=== PATIENT | female | born 1955 | race African-American/Black ===

== ENCOUNTER 2016-11-04 11:49 | Day surgery (SDC) | payer BC ==
[2016-10-31 12:16] LABS: BASOPHILS 0.6 %; BASOPHILS ABSOLUTE 0.03 10/3/uL (0.0-0.16); EOSINOPHILS 30.2 %; EOSINOPHILS ABSOLUTE 1.57 10/3/uL (0.0-0.53); HEMATOCRIT 27.9 % (36.0-48.0); HEMOGLOBIN 9.3 g/dL (12.0-16.0); LYMPHOCYTES 21.3 %; LYMPHOCYTES ABSOLUTE 1.11 10/3/uL (0.67-4.30); MEAN CORPUS HGB CONC 33.3 g/dL (32.0-36.0); MEAN CORPUSCULAR HEMOGLOB 31.8 pg (26.0-34.0); MEAN PLATELET VOLUME 8.9 fL (9.2-13.0); MONOCYTES 4.8 %; MONOCYTES ABSOLUTE 0.25 10/3/uL (0.21-1.20); NEUTROPHILS 43.1 %; NEUTROPHILS ABSOLUTE 2.24 10/3/uL (2.02-8.40); PLATELET COUNT 248 10/3/uL (150-400); RBC DISTRIBUTION WIDTH 16.8 % (12.0-16.0); RED CELL COUNT 2.92 10/6/uL (4.0-5.6)
[2016-10-31 12:22] LABS: MANUAL DIFF NO %; MEAN CORPUSCULAR VOLUME 95.5 fL (80-100); WHITE BLOOD CELLS 5.2 10/3/uL (4.5-10.5)
[2016-10-31 12:36] LABS: ALBUMIN 4.1 G/DL (3.5-5.0); ALKALINE PHOSPHATASE 97 U/L (45-117); BUN (BLOOD UREA NITROGEN) 7 MG/DL (6-23); CHLORIDE, SERUM 107 MMOL/L (96-112); CO2 (CARBON DIOXIDE) 24 MMOL/L (24-34); CREATININE 0.84 MG/DL (0.55-1.02); DIRECT BILIRUBIN 0.2 MG/DL (0.0-0.4); GFR AFRICAN AMERICAN 88 ML/MIN (>=60); GFR NON AFRICAN AMERICAN 76 ML/MIN (>=60); GLUCOSE, SERUM 91 MG/DL (60-99); INDIRECT BILIRUBIN(NOT ORDER) 0.7 MG/DL (0.1-0.9); POTASSIUM, SERUM 3.9 MMOL/L (3.5-5.3); SGOT(AST) 17 U/L (5-40); SGPT(ALT) 17 U/L (5-65); SODIUM, SERUM 144 MMOL/L (135-148); TOTAL BILIRUBIN 0.9 MG/DL (0-1.2); TOTAL PROTEIN 8.2 G/DL (6.0-8.5)
--- NOTE | ~2016-11-04 | OP ---
Record Of Operation [address] [place] [place]. [address] NAME: ANN CARLSON : 57 STATUS : [facility] PAT#: [id number] AGE: 61 ADM/REG DATE : 11/04/16 MR#: [id number] REPORT SERV DATE: 11/05/16 DICTATED BY: ROANN BERNAL DATE: 11/04/16 REPORT STATUS : Draft TRANSCRIBED BY: MODL DATE: 11/04/16 DATE OF PROCEDURE: 11/04/2016 PREOPERATIVE DIAGNOSES: 1. T1 N0 M0 invasive ductal carcinoma, triple negative, of the right breast 3 o'clock position 9 cm from the nipple, close to the surface of the breast and medial close to the sternum. 2. Status post neoadjuvant chemotherapy with satisfactory clinical response. POSTOPERATIVE DIAGNOSES: 1. T1 N0 M0 invasive ductal carcinoma, triple negative, of the right breast 3 o'clock position 9 cm from the nipple, close to the surface of the breast and medial close to the sternum. 2. Status post neoadjuvant chemotherapy with satisfactory clinical response. OPERATION: 1. Right breast partial mastectomy. 2. Intraoperative ultrasound. 3. Intraoperative lymphatic mapping. 4. Injection of blue dye Isosulfan blue. 5. Identification and excision of sentinel node of the right axilla. SURGEON: Ronan Bernal M.D. ANESTHESIA: General LMA. COMPLICATIONS: None. ESTIMATED BLOOD LOSS: Minimal. COUNTS: Correct. DISPOSITION: PACU. SPECIMENS: To Pathology. 1. Partial mastectomy right breast, 3 o'clock. 7 x 6 x 3 cm. The specimen discussed with pathologist Dr. Archie Gage during intraoperative consultation. a. Includes the area of the previous tumor with the biopsy clip. Additional margins, medial and inferior to secure complete resection. 2. Warbranch node blue in color. Radioactive documented right axilla for permanent section. POSITION: Supine with the arm extended prepped free. Preoperative evaluation included standard imaging, advanced imaging. No evidence of any other lesions within the same breast or the contralateral breast. No evidence of Record Of Operation [address] [place] [place]. [address] NAME: ANN CARLSON : 57 STATUS : [facility] PAT#: [id number] AGE: 61 ADM/REG DATE : 11/04/16 MR#: [id number] REPORT SERV DATE: 11/05/16 DICTATED BY: RONAN BERNAL DATE: 11/04/16 REPORT STATUS : Draft TRANSCRIBED BY: MODL DATE: 11/04/16 pathological adenopathy. Informed consent obtained. Discussed with her indications, potential, risks, complications, limitations, and alternatives to surgery. Multidisciplinary consultation prior to surgery also obtained. Preoperative lymphoscintigraphy discussed with Dr. Teddy Miller, radiologist. Shows a sentinel node with thin migration to the right axilla detected. The patient has had a prior reduction mammoplasty that may account for the slow migration of the sentinel node. We have planned originally placement of the guidewire in the office, however, this could not be accomplished. Due to the patient's logistic, she did not come to the office for the wire placement, so we opted to localize the area intraoperatively with ultrasound. We used SonoSite to remove equipment. SUMMARY: She was brought to the operating room and placed supine. The patient identified, procedure confirmed. A time-out protocol enforced, prophylactic IV antibiotics given. The right breast, right axilla, and the right arm were prepped and draped in a sterile fashion. The area of the tumor was interrogated with ultrasound. The biopsy marker clip was seen. No residual tumor. The previous imaging studies were reviewed as well. We marked the skin located 3 o'clock 9 cm from the nipple consistent with the preoperative and evaluation, and the findings at the time of the biopsy. We injected the periareolar area with Isosulfan blue, Lymphazurin, intraparenchymal. An incision was made directly over the skin at the 3 o'clock position 9 cm from the nipple in the area of the biopsy marker clip. The incision was carried down through the underlying subcutaneous tissue. Using the intraoperative ultrasound, a small probe, we monitored the resection. We developed flaps superiorly, inferiorly, medially, and laterally to encompass the area of the tumor and a wide resection of the breast parenchyma surrounding the tumor site due to the nature of this triple negative aggressive tumor. The breast parenchyma was transected with electrocautery. Hemostasis achieved by means of electrocautery and also with a suture ligature of a 3-0 Vicryl. The specimen was then from the underlying chest wall aponeurosis. The specimen was removed, oriented. The specimen radiograph was obtained. This showed the biopsy clip toward the inferior medial aspect of the specimen, which may be influenced by the positioning of the specimen at the time of removal from the partial mastectomy cavity. Throughout the dissection, we believe that the superficial marker clip is close to the Record Of Operation [facility] [address] [place]. [address] NAME: ANN CARLSON : 57 STATUS : [facility] PAT#: [id number] AGE: 61 ADM/REG DATE : 11/04/16 MR#: [id number] REPORT SERV DATE: 11/05/16 DICTATED BY: RONAN BERNAL DATE: 11/04/16 REPORT STATUS : Draft TRANSCRIBED BY: MODL DATE: 11/04/16 surface of the skin and that the margins will be wide in all directions. Intraoperative consultation was obtained with Dr. Archie Gage, pathologist. Biopsy clip marker was seen, No residual tumor. He will submit the specimen for microscopic evaluation. We opted to re-resect the inferior and medial margin to secure that there was no evidence of any residual microscopic premalignant changes in the field. Hemostasis was secured. The area was irrigated with normal saline solution. A 0.25% Marcaine for postoperative pain control. The dermis was then approximated with interrupted sutures of 3-0 Vicryl. The skin with 3-0 Vicryl subcuticular. Sterile dressings were applied. We then interrogated the right axilla with the gamma probe. Radioactivity detected. Incision made at level 1 carried down through the underlying subcutaneous tissues into the axilla. A blue-stained sentinel node radioactivity was detected. This node was the only sentinel node detected in the axilla by inspection, palpation, and the use of the gamma probe. This node was clearly blue and radioactive. The node was isolated, dissected free, harvested, intact, and sent to Pathology for analysis. Counts were documented. The lymphatic vessels associated with these nodes were divided between hemoclips. No evidence of any residual pathological adenopathy. I had the area irrigated with saline solution, small amount of hydrogen peroxide, adding 0.25% Marcaine for postoperative pain control. Dermis approximated with interrupted sutures of 3-0 Vicryl. Stated dressings were applied. She has tolerated procedure well. No complications. Exit time out protocol was enforced. Counts correct and minimal blood loss. There were no family members to be informed directly. The nursing staff was present with the patient requested that no family members to be called. She will call the family members when she is awake. We honored the patient's request to avoid informing any family members unless there were to be an emergency or a complication. Unknown that this situation has occurred. Await final path report to make long-term therapeutic recommendations, which will include radiation therapy and depend on the lymph nodes and margins, additional surgery if indicated. She will be placed on a long-term surveillance protocol. ZAIRE/CATHERINE Ronan Bernal M.D. / [id number] Record Of [address] [address] NAME: ANN CARLSON : 57 STATUS : [facility] PAT#: [id number] AGE: 61 ADM/REG DATE : 11/04/16 MR#: [id number] REPORT SERV DATE: 11/05/16 DICTATED BY: RONAN BERNAL DATE: 11/04/16 REPORT STATUS : Draft TRANSCRIBED BY: CATHERINE DATE: 11/04/16 CC: Mike Arriaga M.D. Darrell Johnson, M.D. Bessie Ingram-Nunally, M.D.
[~2016-11-04 11:49] MED LIST: KLOR-CON 1010 MEQ PO; LEVOTHYROXIN125 MCG PO; ZETIA PO
== END 2016-11-04 20:17 | disposition home or self-care (01) ==
LOC: SDC 11:49
PROVIDERS: Surgery
PROC: 07B50ZX Excision of Right Axillary Lymphatic, Open Approach, Diagnostic (ICD-10-PCS; 2016-11-04)
PROC: 3E0W3KZ Introduction of Other Diagnostic Substance into Lymphatics, Percutaneous Approach (ICD-10-PCS; 2016-11-04)
PROC: 0HBT0ZZ Excision of Right Breast, Open Approach (ICD-10-PCS; principal; 2016-11-04 14:30)
DX: C50.811 Malignant neoplasm of overlapping sites of right female breast (principal); Z17.1 Estrogen receptor negative status [ER-]; E78.00 Pure hypercholesterolemia, unspecified; E03.9 Hypothyroidism, unspecified; D64.81 Anemia due to antineoplastic chemotherapy; Z98.890 Other specified postprocedural states; Z79.899 Other long term (current) drug therapy
CPT/HCPCS: 76098; 78195; 80048; 80076; 85025; 88305; 88307; 88341; 88342; A9541; J0690; J1170; J2250; J2405; J3010; Q9968